=== PATIENT | male | born 1940 | race Hispanic/Latino ===

== ENCOUNTER 2020-04-23 21:36 | Emergency (ER) | payer MEDICARE ==
[2020-04-23] MEDS ORDERED: AZITHROMYCIN 500MG/NS 250 ML 250 ML IV STA (22:04)
[2020-04-23] MEDS ORDERED: CEFTRIAXONE SOD 1 GM/NS 50 ML 50 ML IV ONE (22:15)
[2020-04-23] MEDS ORDERED: ACETAMINOPHEN 325 MG TAB PO ONE (22:15)
[2020-04-23] MEDS ORDERED: DEXAMETHASONE SOD PHOS 10 MG/1 ML VIAL IV ONE (22:15)
--- NOTE | 2020-04-23 23:14 | Diagnostic Imaging Report ---
EXAMINATION: CHEST SINGLE (PORTABLE) INDICATION: ^Y ^COVID ^[id number] ^[id number] COMPARISON: None FINDINGS: AP view TUBES and LINES: None. LUNGS: Low lung volumes. Ill-defined patchy airspace disease of both lungs, notably in the right lower lobe. PLEURA: Questionable small right pleural effusion. No pneumothorax. HEART AND MEDIASTINUM: The cardiomediastinal silhouette is unremarkable. BONES AND SOFT TISSUES: No acute osseous lesion. Soft tissues are unremarkable. UPPER ABDOMEN: No free air under the diaphragm. IMPRESSION: Patchy airspace disease within both lungs consistent with provided history of viral pneumonia. Signed by: Taon Rivera MD on 04/23/2020 11:10 PM
--- NOTE | 2020-04-23 23:50 | NUR ---
PT SPO2 89_90% ON 6L O2 NC. PT PLACED ON 15L NRB. ER MD NOTED AND AWARE.
--- NOTE | 2020-04-23 23:58 | NUR ---
Spoke to transfer at 2230, needs COVID ICU TRANSFER, PLACED ON WAITING LIST.
--- NOTE | 2020-04-24 00:21 | NUR ---
PT REQUEST TO LEAVE AMA; THIS RN, JUSTIN Esquivel RN, AND ER AT ; EXPLAINED TO PT AND PTS GRANDAUTER THAT PTS SPO2 IS NOT COMPATIBLE WITH LIFE IF PT IS DC'D FROM HOSPITAL AND THAT PT COULD POTENTIALLY ; PT AND GRANDAUGHTER VERBALIZED UNDERSTANDING
--- NOTE | 2020-04-24 01:38 | Emergency Department Note ---
History of Present Illnes History of Present Illness Chief Complaint: COVID PUI History of Present Illness This is a 79 year old male arrives to the ED with complaints of cough fever chest pain. Patient states he has had family members who tested positive for Covid 19. Historian: Patient Arrival Mode: Car Severity: mild Duration (how long): day(s) Timing of current episode: constant Progression: worsening Chronicity: new Past Medical/Family History Physician Review I have reviewed the patient's past medical and family history. Any updates have been documented here. Past Medical History Recent Fever: Yes Clinical Suspicion of Infectio: Yes New/Unexplained Change in Ment: No Social History Smoking Cessation: Never Smoker Review of Systems Review of Systems Constitutional: Reports as per HPI, Reports fever EENTM: Reports no symptoms Cardiovascular: Reports no symptoms Respiratory: Reports as per HPI, Reports chest congestion, Reports cough, Reports dyspnea Gastrointestinal: Reports no symptoms Genitourinary: Reports no symptoms Musculoskeletal: Reports no symptoms Integumentary: Reports no symptoms Neurological: Reports no symptoms Psychological: Reports no symptoms Endocrine: Reports no symptoms Hematological/Lymphatic: Reports no symptoms Physical Exam Related Data Allergies: Coded Allergies: No Known Allergies (Unverified , 04/23/20) Triage Vital Signs Vital Signs Date Time Temp Pulse Resp B/P (MAP) Pulse Ox O2 Delivery O2 Flow Rate FiO2 04/23/20 21:46 101.2 112 20 157/90 78 Vital signs reviewed: Yes Physical Exam CONSTITUTIONAL Constitutional: Present well-developed, Present well-nourished HENT HENT: Present normocephalic, Present atraumatic, Present oropharynx clear/moist, Present nose normal HENT L/R: Present left ext ear normal, Present right ext ear normal EYES Eyes: Reports PERRL, Reports conjunctivae normal NECK Neck: Present ROM normal PULMONARY Pulmonary: Present effort normal, Present respiratory distress CARDIOVASCULAR Cardiovascular: Present regular rhythm, Present heart sounds normal, Present capillary refill normal, Present normal rate GASTROINTESTINAL Abdominal: Present soft, Present nontender, Present bowel sounds normal GENITOURINARY Genitourinary: Present exam deferred SKIN Skin: Present warm, Present dry MUSCULOSKELETAL Musculoskeletal: Present ROM normal NEUROLOGICAL Neurological: Present alert, Present oriented x 3, Present no gross motor or sensory deficits PSYCHOLOGICAL Psychological: Present mood/affect normal, Present judgement normal Results Laboratory Lab results reviewed: Yes Imaging Imaging results reviewed: Yes Impressions IMPRESSION: Patchy airspace disease within both lungs consistent with provided history of viral pneumonia. Assessment & Plan Medical Decision Making MDM 79-year-old male arrives to the ED with complaints of cough fever chills. Patient clinically presenting as Covid positive. Patient noted to be hypoxic on arrival require supplemental O2. During patient's ED course he wished to the discharged home. Patient states he understands he has a coronavirus and the high likelihood that he will likely pass the disease process, however, states he has ready to accept that state and wishes to go home and use of proning techniques discussed. Patient has insight and reasoning to medical decision-making. Spoke to patient's family members express understanding. Patient discharged home with Z-Thad and Decadron and understands she is welcome to return to the ED at any time.Patient has decided to leave the hospital against medical advice. At this time re-evaluated patient and discussed at bedside the followin. Capacity: Patient has capacity to communicate, ability to understand information, and the ability to manipulate the information presented to make a logical decision. 2. Communication of risk: Discussed with patient at bedside potential risks, potential outcomes, alternative approaches in a patient-centered manner. We discussed the specific risks of leaving the hospital when you require supplemental oxygenPatient has decided to leave the hospital against medical advice. At this time re-evaluated patient and discussed at bedside the followin. Capacity: Patient has capacity to communicate, ability to understand information, and the ability to manipulate the information presented to make a logical decision. 2. Communication of risk: Discussed with patient at bedside potential risks, potential outcomes, alternative approaches in a patient-centered manner. We discussed the specific risks of , including worsening condition, and . Patient understands we would welcome a return visit at any time to complete the work-up. At this time, patient is discharged against medical advice from my care. , including worsening condition, and . Patient understands we would welcome a return visit at any time to complete the work-up. At this time, patient is discharged against medical advice from my care. Assessment & Plan Final Impression: (1) COVID-19 Depart Disposition: HOME, SELF-CARE Last Vital Signs Date Time Temp Pulse Resp B/P (MAP) Pulse Ox O2 Delivery O2 Flow Rate FiO2 04/23/20 21:46 101.2 112 20 157/90 78 Medications in the ED Ceftriaxone Sodium 50 ml @ 100 mls/hr ONCE ONCE IV ; Start 04/23/20 at 22:15; Stop 04/23/20 at 22:44; Status DC Azithromycin 250 ml @ 200 mls/hr NOW STAT IV ; Start 04/23/20 at 22:04; Stop 04/23/20 at 23:18; Status DC Acetaminophen 650 mg ONCE ONCE PO ; Start 04/23/20 at 22:15; Stop 04/23/20 at 22:16; Status DC Dexamethasone Sodium Phosphate 6 mg ONCE ONCE IV ; Start 04/23/20 at 22:15; Stop 04/23/20 at 22:16; Status DC TRINA JARAMILLO DO Apr 24, 2020 01:38
== END 2020-04-24 01:03 | disposition left against medical advice (07) ==
LOC: ER 22:55
DX: U07.1 COVID-19 (principal); R50.9 Fever, unspecified; R05 Cough
CPT/HCPCS: 71045; 99284